=== PATIENT | male | born 1985 | race Caucasian/White ===

== ENCOUNTER 2020-12-21 01:09 | Emergency (ER) | payer SELFPAY ==
[2020-12-21 01:23] VITALS: BP 117/70; PULSE 50; RESP 16; TEMP 37; O2SAT 97
[2020-12-21] MEDS: Buprenorphine/Naloxone 8 mg/2 mg FILM 1 EACH SL (02:12)
--- NOTE | 2020-12-21 02:19 | W.ED.GENAD ---
Discharge Plan Disposition Patient Disposition: HOME Condition: Improving Discharge Details Clinical Impression: Opiate dependence Primary Care Provider: Luis Enrique Quijano ED Provider: Kevin Yousif Meds and New Rx's Prescriptions: New Narcan 4 mg/actuation spray,non-aerosol 4 mg intranasal Q2-3M PRNQty: 2 RF: 0 Discharge Instructions Instructions: Buprenorphine/Naloxone (Into the mouth) Additional Instructions: Per our department protocols prescription for Narcan has been sent to pharmacy and you are being discharged with 3-day supply of Suboxone. You are to follow-up with [facility] this morning again per our department protocols. Be sure to follow through with life skills coach. Medical Decision Making Patient here requesting Suboxone for management of opiate withdrawal and MAT. He has used Suboxone previously when detoxing in the past. Review of the [facility] site reveals no activity in the last year. Patient is in withdrawal currently. Consent obtained, labs and urine obtained, Suboxone 8 mg film ordered. Call to life skills coach place. Patient improved after Suboxone. Laboratory studies unremarkable. Drug screen positive for cocaine and marijuana. Alcohol 0. 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 Patient will be discharged from the ED to go to [facility] this morning for follow-up. Per department protocol prescription for Narcan will be provided and 3-day supply of Suboxone 8 mg film given. Lab Data Lab results reviewed: Yes I reviewed the patient's lab results. HPI General Mode of arrival: EMS. Date/Time Provider Initiated Documentation: 12/21/20 01:55. Limitations to Documentation: no limitations. Information obtained by: patient and RN notes reviewed. HPI Narrative: Patient presents to ED by ambulance requesting detox from opiates. Patient smokes heroin on a daily basis. Currently homeless and living with his girlfriend in a tent. They have been in contact with recovery coaches as well as trying to get into [facility]. He has not used for 2 days now. He has developed withdrawal symptoms including hot flashes, chills, restless legs, nausea, vomiting. He denies headache, cough, chest pain, shortness of breath. He has in the past been on Suboxone. He was clean and sober for 5 months but moved back up here to [place] and began using again. Related Data Home Medications Medication Instructions Recorded Confirmed naloxone [Narcan] 4 mg INTRANASAL Q2-3M PRN #2 ea 12/21/20 Previous Rx's Medication Instructions Recorded naloxone [Narcan] 4 mg INTRANASAL Q2-3M PRN #2 ea 12/21/20 Allergies Allergy/AdvReac Type Severity Reaction Status Date / Time No Known Allergies Allergy Unverified 12/21/20 01:26 General Stated Complaint: GenMedical ESPINOZA: 3 Review of Systems Narrative: As documented in HPI otherwise negative as below. Const: no fever, weakness Resp: no cough, SOB, pleuritic pain CV: no CP, diaphoresis, edema, syncope GI: no abdominal pain Neuro: no headache, numbness, focal weakness, confusion [facility] Medical History No significant past medical history Social History Smoking/Tobacco Use Status: Current every day Tobacco Type: cigarettes Smoking risk assessment performed?: Yes Alcohol Intake: never Drug use: Daily Substance use type: heroin, opiates and other Details: Smoking heroin and fentanyl Do you feel safe at home: Yes Do you feel safe in your relationship?: Yes Exam Narrative Exam Narrative: Const: WDWN male who is restless and anxious. HEENT: NC/AT. Normal facial exam. Neck: Supple. Trachea midline. Lungs: Normal respiratory effort. Lungs are clear. Cor: RRR without murmur/gallop. Good radial pulses. GI: Soft. NT/ND. Neuro: A+O x 3. Normal speech, mentation, gait. Cranial nerves II - XII grossly intact. No gross motor or sensory deficit. Ext: No C/C/E. Skin: Diaphoretic, piloerection. Psych: Anxious. No SI or HI Course Vital Signs Vital signs: Vital Signs Temperature 98.6 F 12/21/20 01:23 Pulse 50 L 12/21/20 01:23 Respiratory Rate 16 12/21/20 01:23 Blood Pressure 117/70 12/21/20 01:23 Pulse Oximetry 97 12/21/20 01:23 Temperature 98.6 F 12/21/20 01:23 Temperature Source Temporal Artery Scan 12/21/20 01:23 Pulse 50 L 12/21/20 01:23 Respiratory Rate 16 12/21/20 01:23 Respiratory Effort Non-Labored 12/21/20 01:30 Respiratory Depth Normal 12/21/20 01:30 Respiratory Pattern Normal 12/21/20 01:30 Blood Pressure 117/70 12/21/20 01:23 Blood Pressure Position Sitting 12/21/20 01:23 Pulse Oximetry 97 12/21/20 01:23 Oxygen Delivery Method Room Air 12/21/20 01:23 Oxygen Flow Rate 0 12/21/20 01:23 Pain Level 8 12/21/20 01:23
[2020-12-21 02:30] VITALS: BP 115/79; PULSE 50; RESP 14; O2SAT 98
[2020-12-21 03:11] LABS: HCT 41.7 % (40.0-50.0); HGB 13.9 g/dL (13.5-17.5); MCH 29.8 pg (27.0-33.0); MCHC 33.3 % (32.0-36.0); MCV 89.5 fL (80-95); MPV 10.9 fL (8.0-11.0); Platelet Count 196 10^3/uL (130-400); RBC 4.66 10^6/uL (4.36-5.78); RDW 12.6 % (11.8-14.1); RDW-SD 41.2 fL; WBC 8.58 10^3/uL (4.4-10.8)
[2020-12-21 03:30] VITALS: BP 102/62; PULSE 43; RESP 14; O2SAT 96
[2020-12-21 04:37] LABS: ALT 54 U/L (16-63); AST 34 U/L (15-37); Albumin 3.7 g/dL (3.4-5.0); Alkaline Phosphatase 57 U/L (46-116); Anion Gap 4.6 mmol/L (3-11); BUN 21 mg/dL (7-18); Bilirubin, Total 0.4 mg/dL (0.2-1.0); CO2 29.4 mmol/L (21.0-32.0); Calcium 8.9 mg/dL (8.5-10.1); Chloride 109 mmol/L (98-107); Glucose 104 mg/dL (74-106); Potassium 3.6 mmol/L (3.5-5.1); Sodium 143 mmol/L (136-145); Total Protein 7.2 g/dL (6.4-8.2)
[2020-12-21 04:37] LABS: *AMPHETAMINES SCREEN URINE Negative (Negative); *BARBITURATES SCREEN URINE Negative (Negative); *BENZODIAZEPINES SCREEN URINE Negative (Negative); Cannabinoids THC Positive (Negative); Cocaine Screen,Urine Positive (Negative); METHADONE URINE SCREEN Negative (Negative); OPIATES URINE SCREEN Negative (Negative)
[2020-12-21 04:40] LABS: ETHANOL BLOOD < 3.0 mg/dL (<3)
[2020-12-21 04:41] LABS: Tricyclic Antidepressants Negative (Negative)
--- NOTE | 2020-12-21 04:48 | NUR.NOTE ---
Nursing Note: Soil Analyst was paged numerous times during length of patient's ED Stay and never responded back.
[2020-12-21 05:00] VITALS: BP 109/65; PULSE 57; RESP 14; TEMP 36.5; O2SAT 98
[2020-12-23 09:57] LABS: HIV-1/2 Ag & Ab Screen Negative (Negative)
[2020-12-24 10:52] LABS: HBs Antibody, Quant 7.5 mIU/mL (See Note); Hep B Surface Ab Negative (See Note); Hepatitis B Core Antibody Negative (Negative); Hepatitis B Surface Antigen Negative (Negative)
[2020-12-24 11:40] LABS: Hepatitis C Ab w Rflx HCV PCR Reactive (Negative)
[2020-12-26 15:06] LABS: HCV RNA Detection Quantitative 1540000 IU/mL (Undetected); HCV RNA Qualitative Detected (Undetected)
== END 2020-12-21 05:07 | disposition home or self-care (01) ==
PROVIDERS: Emergency Provider Emergency Medicine; PCP Specialist/Technologist Athletic Trainer
DX: F11.23 Opioid dependence with withdrawal (principal); F14.10 Cocaine abuse, uncomplicated
CPT/HCPCS: 36415; 80053; 80307; 85027; 86704; 86706; 86803; 87340; 87389; 87522; 99283; 80320

== ENCOUNTER 2021-04-23 13:09 | Emergency (ER) | payer SELFPAY ==
[2021-04-23 13:12] VITALS: BP 146/76; PULSE 53; RESP 16; TEMP 37; O2SAT 98
--- NOTE | 2021-04-23 13:15 | DI.RAD_ITS ---
Exam(s) XR HAND LT COMPLETE EXAM: XR HAND LT COMPLETE CLINICAL HISTORY: Crush injury. TECHNIQUE: 2D digital imaging was performed of the left hand. Views were obtained. AP, lateral an d oblique views were obtained. COMPARISON: No exams were available for comparison FINDINGS: BONES: There appears to be a minimally displaced fracture involving the volar aspect of the base of t he middle phalanx of the middle finger. There is associated soft tissue swelling. No bony destructi ve lesion is seen. JOINTS: No dislocation present. SOFT TISSUE: Normal. IMPRESSION: Minimally displaced fracture of the volar aspect of the base of the middle phalanx of the middle fing er. DATA REPOSITORY: RADIATION DOSE DELIVERED:
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
[2021-04-23] MEDS: Ibuprofen 800 MG TAB PO (13:23)
[2021-04-23 14:51] VITALS: BP 123/74; PULSE 52; TEMP 36.6; O2SAT 97
== END 2021-04-23 14:55 | disposition home or self-care (01) ==
PROVIDERS: Emergency Provider Registered Nurse Emergency; PCP Specialist/Technologist Athletic Trainer
DX: S62.613A Displaced fracture of proximal phalanx of left middle finger, initial encounter for closed fracture (principal); V98.8XXA Other specified transport accidents, initial encounter
CPT/HCPCS: 29130; 99283; 73130